=== PATIENT | female | born 1990 | race African-American/Black ===

== ENCOUNTER 2016-07-21 20:02 | Emergency (ER) | payer MEDICAID ==
[2016-07-21] MEDS ORDERED: Levothyroxine 0.1 Mg Tab PO ONE (20:29)
--- NOTE | 2016-07-21 20:30 | ED Physician Chart ---
Chief Complaint/HPI - Patient Information Date Seen:: 07/21/16 Time Seen:: 20:25 Chief Complaint:: here w police History of Present Illness:: needs check up for approval for incarceration. pt says she has no pain or complaints or acute injury or illness. she is on synthroid x last 3yrs and has missed last 2 days rx. feels ok. had a mild brief pain in chest earlier..she has had similar in past. Allergies:: Allergies Allergy/AdvReac Type Severity Reaction Status Date / Time No Known Allergies Allergy Verified 07/21/16 20:21 Historian:: Patient Review of Systems - Review of Systems General/Constitutional: No fever, No chills, No weight loss, No weakness, No diaphoresis, No edema, No loss of appetite Skin: No skin lesions, No rash, No bruising Head: No headache, No light-headedness Eyes: No loss of vision, No pain, No diplopia ENT: No earache, No nasal drainage, No sore throat, No tinnitus Neck: No neck pain, No swelling, No thyromegaly, No stiffness, No mass noted Cardio Vascular: No chest pain, No palpitations, No PND, No orthopnea, No edema Pulmonary: No SOB, No cough, No sputum, No wheezing GI: No nausea, No vomiting, No diarrhea, No pain, No melena, No hematochezia, No constipation, No hematemesis G/U: No dysuria, No frequency, No hematuria Musculoskeletal: No bone or joint pain, No back pain, No muscle pain Endocrine: No polyuria, No polydipsia Psychiatric: No prior psych history, No depression, No anxiety, No suicidal ideation Hematopoietic: No bruising, No lymphadenopathy Allergic/Immuno: No urticaria, No angioedema Neurological: No syncope, No focal symptoms, No weakness, No paresthesia, No headache, No seizure, No dizziness, No confusion, No vertigo Past Medical History - Past Medical History Past Medical History: Thyroid disorder, Other (low fe) Social History: Single Medication: Reviewed Physical Exam - Physical Examination General/Constitutional: Awake, Well-developed, well-nourished, Alert, No distress, GCS 15, Non-toxic appearing, Ambulatory Head: Atraumatic Eyes: Lids, conjuctiva normal, PERRL, EOMI Skin: Nl inspection, No rash, No skin lesions, No ecchymosis, Well hydrated, No lymphadenopathy ENMT: External ears, nose nl, Nasal exam nl, Lips, teeth, gums nl Neck: Nontender, Full ROM w/o pain, No JVD, No nuchal rigidity, No bruit, No mass, No stridor Other Neck comments:: thyromegally..uniform enlgrment no focal node. no pallor. alert/nad Respiratory: Nl effort/Exclusion, Clear to Auscultation, No Wheeze/Rhonchi/Rales Cardio Vascular: RRR, No murmur, gallop, rubs, NL S1 S2 GI: No tenderness/rebounding/guarding, No organomegaly, No hernia, Normal BS's, Nondistended, No mass/bruits, No McBurney tenderness : No CVA tenderness Extremities: No tenderness or effusion, Full ROM, normal strength in all extremities, No edema, Normal digits & nails Neuro/Psych: Alert/oriented, DTR's symmetric, Normal sensory exam, Normal motor strength, Judgement/insight normal, Mood normal, Normal gait, No focal deficits Misc: normal gait, Normal back, No paraspinal tenderness Labs/Radiology/EKG Results - EKG Interpretations EKG Time:: 20:30 Rate & Rhythm: nsr 54 [place]: 43 Intervals: nrml Comments:: wnl ED Septic Shock - . Is Septic Shock (SBP<90, OR Lactate>4 mmol\L) present?: No Reassessment (Disposition) - Reassessment Reassessment Condition:: Improved - Diagnosis Diagnosis:: 1 pt is medically clear for incarceration 2 pt should be allowed to take her daily synthroid and fe as usual while in captivity 3 hypothyroid dz- chronic x 3 yrs - Patient Disposition Discharge/Transfer:: Custodial/[facility] Condition at Disposition:: Improved
[2016-07-21] MEDS ORDERED: Levothyroxine 0.1 Mg Tab ONE (20:54)
== END 2016-07-21 21:10 | disposition still patient (30) ==
LOC: ER 20:02
DX: Z02.89 Encounter for other administrative examinations (principal); E03.9 Hypothyroidism, unspecified
CPT/HCPCS: 93005; Z7502